=== PATIENT | male | born 1960 | race African-American/Black ===

== ENCOUNTER 2021-01-17 20:51 | Inpatient (IN) | payer MEDICARE, OTHER ==
[~2021-01-17] VITALS: Ht 172.7 cm; Wt 81.6 kg
[2021-01-17] MEDS ORDERED: BENZ2TAB7 PO (21:04)
[2021-01-17] MEDS ORDERED: BENZ1TAB7 PO (21:04)
--- NOTE | 2021-01-17 21:10 | NUR ---
PATIENT BIB [facility] FROM [facility] ON A 5150 HOLD FOR GD AND DTS TO BE MEDICALLY CLEARED. PT NOTED TO BE CALM AND COOPERATIVE AT THIS TIME. BED IN LOWEST POSITION FOR SAFETY PRECAUTIONS. ORIENTED PT TO ENVIRONMENT. PROVIDED PT WITH SAFE, QUIET AND CALM ENVIRONMENT.
[2021-01-17] MEDS ORDERED: GABA100C PO (21:25)
[2021-01-17] MEDS ORDERED: RISP2TAB5 PO (21:25)
[2021-01-17] MEDS ORDERED: QUET300T2 PO (21:25)
[2021-01-17] MEDS ORDERED: PHEN100C4 PO (21:25)
[2021-01-17] MEDS ORDERED: QUET200T PO (21:25)
[2021-01-17] MEDS ORDERED: CHLO25CA22 PO (21:25)
[2021-01-17] MEDS ORDERED: OLAN10TA3 PO (21:25)
[2021-01-17] MEDS ORDERED: QUET100T PO (21:25)
[2021-01-17] MEDS ORDERED: DIVA500T2 PO ×2 (21:25)
[2021-01-17] MEDS ORDERED: PHEN100P12 PO (21:25)
[2021-01-17] MEDS ORDERED: LEVE500T9 PO (21:25)
[2021-01-17] MEDS ORDERED: METF-440 PO (21:25)
--- NOTE | 2021-01-18 00:28 | NUR ---
Patient is resting comfortably in bed with eyes closed. Breathing even and unlabored.
--- NOTE | 2021-01-18 02:50 | NUR ---
1:1 SITTER AT BEDSIDE, PT NOTED TO BE ASLEEP, COMFORTABLE AND IN BED.
[2021-01-18] MEDS ORDERED: HALOPERIDOL LACTATE 5 MG/1 ML VIAL ONE (03:26)
[2021-01-18] MEDS ORDERED: HALOPERIDOL LACTATE 5 MG/1 ML VIAL IM ONE (03:30)
[2021-01-18] MEDS ORDERED: LORAZEPAM 2 MG/1 ML VIAL IM ONE (04:00)
[2021-01-18] MEDS ORDERED: diphenhydrAMINE 50 MG/1 ML VIAL IM ONE (04:00)
[2021-01-18] MEDS ORDERED: diphenhydrAMINE 50 MG/1 ML VIAL ONE (04:08)
[2021-01-18] MEDS ORDERED: LORAZEPAM 2 MG/1 ML VIAL ONE (04:08)
[2021-01-18 04:37] LABS: HEMATOCRIT 42.2 % (36.7-47.1); MEAN CORPUSCULAR HEMOGLOBIN 27.3 uug (23.8-33.4); MEAN CORPUSCULAR VOLUME 82.7 fL (73.0-96.2); PLATELET COUNT (AUTO) 264 K/uL (152-348)
[2021-01-18 04:47] LABS: CARBON DIOXIDE 26 mmol/L (21-32); CHLORIDE 102 mmol/L (98-107); GLUCOSE 89 mg/dL (74-106); POTASSIUM 3.6 mmol/L (3.5-5.1); UREA NITROGEN, BLOOD 18 mg/dL (7-18)
[2021-01-18 04:53] LABS: ALANINE AMINOTRANSFERASE 54 U/L (16-63); ALKALINE PHOSPHATASE 82 U/L (50-136); ASPARTATE AMINOTRANSFERASE 54 U/L (15-37); BILIRUBIN,DIRECT 0.1 mg/dL (0.0-0.2); BILIRUBIN,TOTAL 0.4 mg/dL (0.2-1.0); CREATINE KINASE, TOTAL 293 U/L (39-308); TOTAL PROTEIN, SERUM 8.2 g/dL (6.4-8.2)
[2021-01-18 04:54] LABS: ACETAMINOPHEN < 2.0 ug/mL (10-30)
[2021-01-18 05:08] LABS: ETHANOL < 3 MG/DL (0-0)
--- NOTE | 2021-01-18 05:19 | NUR ---
PT ASLEEP, RESTING COMFORTABLY. VITALS STABLE.
--- NOTE | 2021-01-18 06:44 | NUR ---
GAVE REPORT TO RAHEEL MELGOZA.
--- NOTE | 2021-01-18 07:13 | NUR ---
Pt. admitted to [facility] , under care of Dr. KUMARI DX: PSYCOSIS 6730 DTS, GD Belongs List completed
[2021-01-18 07:30] VITALS: BP 113/87
[2021-01-18 09:47] LABS: THYROID STIMULATING HORMONE 0.758 mIU/mL (0.358-3.740)
--- NOTE | 2021-01-18 10:05 | NUR ---
Gps/Video System Repairer- Patient arrived in the Unit 0710 am via gurney , in no sign of any distress, does not was to answer questions, his head covered with bedsheets, redirected to his room , will attempt to ask at a later time, patient does not want to be bothered
[2021-01-18] MEDS: THIAMINE HCL 100 MG TABLET PO SCH (12:44)
[2021-01-18] MEDS: LORAZEPAM 1 MG TABLET PO PRN ×3 (12:44→20:33)
[2021-01-18] MEDS: DIVALPROEX 500 MG TABLET.DR PO SCH ×2 (12:48→20:29)
--- NOTE | 2021-01-18 13:00 | NUR ---
Gps/Licensed Staff Mft- Patient remains in bed, in his room, flat guarded, not interactive, answers to simple yes no questions, Wants his room dark, refused to have lights on. Does not want to be bothered. Covered his head with blanket when try to interact and approached patient. Will continue to monitor behavior, denies S.I.
[2021-01-18 16:56] VITALS: BP 105/62
[2021-01-18] MEDS ORDERED: CHLORDIAZEPOXIDE HCL 25 MG CAPSULE PO SCH (18:00)
[2021-01-18] MEDS: GABAPENTIN 100 MG CAPSULE PO SCH (19:01)
[2021-01-18] MEDS: levETIRAcetam 500 MG TABLET PO SCH (19:02)
[2021-01-18 20:12] VITALS: BP 101/66
[2021-01-18] MEDS: OLANZAPINE 5 MG TABLET PO SCH (20:29)
[2021-01-18] MEDS: PHENYTOIN SODIUM EXTENDED 100 MG CAPSULE.SA PO SCH (20:33)
--- NOTE | 2021-01-19 04:03 | NUR ---
Received patient at the start of the shift in bed. This medical writer spoke to him and encouraged patient to get up out of bed for a snack. The patient was compliant with medications and did leave his room for a few minutes.. This medical writer was unable to engage in any meaningful conversation, but did make a contract for safety with the patient during this shift. The patient seemed somewhat disoriented at times. Continuing to monitor this patient for SI and safety. No behavior escalation noted and the patient had minimal interaction with staff and peers.
[2021-01-19 07:30] VITALS: BP 105/61
[2021-01-19] MEDS: GABAPENTIN 100 MG CAPSULE PO SCH ×3 (09:13→18:03)
[2021-01-19] MEDS: METFORMIN HCL 500 MG TABLET PO SCH ×2 (09:14→18:03)
[2021-01-19] MEDS: OLANZAPINE 5 MG TABLET PO SCH ×2 (09:14→20:31)
[2021-01-19] MEDS: THIAMINE HCL 100 MG TABLET PO SCH (09:14)
[2021-01-19] MEDS: DIVALPROEX 500 MG TABLET.DR PO SCH ×2 (09:15→20:31)
[2021-01-19] MEDS: SERTRALINE HCL 50 MG TABLET PO SCH (09:15)
[2021-01-19] MEDS: levETIRAcetam 500 MG TABLET PO SCH ×2 (09:15→18:04)
[2021-01-19] MEDS: MULTIVITAMINS,THERAPEUTIC TABLET PO SCH (09:16)
[2021-01-19] MEDS: PHENYTOIN SODIUM EXTENDED 100 MG CAPSULE.SA PO SCH ×2 (09:24→20:31)
--- NOTE | 2021-01-19 10:33 | NUR ---
Firearms Report Property Maintenance Technician completed and submitted a [employer] firearms report for 5150 danger to self and grave disability certifications. A copy of report has been placed in patient chart.
--- NOTE | 2021-01-19 11:15 | NUR ---
SW Initial Discharge Note Pt currently homeless. Pt reports he previously resided at [facility] located at [address] [place] [id number] ([phone]). RADHA contacted [facility] and spoke with EVAN, asset management coordinator, who informed pt was discharged on 01/11/21 but is welcome back upon discharge from hospital. RADHA will continue to work with patient and MD to ensure a safe and proper discharge.
--- NOTE | 2021-01-19 12:40 | NUR ---
Gps/Waiter/Waitress Counter- Remains in his room in bed, remains with lead patches from EKG, pt. refused to have it removed, when asked patient why, claimed it makes him feels better. Informed patches will eventually irritates his skin needed to be removed, finally patient let staff removed patches. Patient also asking for his credit card claimed it was in the pocket of his Hospital . gown, informed none was noted, he came in w/ no belongings .Remains with breakfast food at his table refusing staff to removed it, informed needed space for his lunch tray.
[2021-01-19 16:25] VITALS: BP 106/69
--- NOTE | 2021-01-19 18:19 | NUR ---
Gps/Superintendent Stations- Patient claimed he is missing his credit card, which he put inside his hospital gown, claimed was moved to many rooms, informed patient he came through ER to [facility] , he insisted he was moved to many rooms.
[2021-01-19] MEDS: LORAZEPAM 1 MG TABLET PO PRN (20:51)
[2021-01-20 07:30] VITALS: BP 91/57
[2021-01-20] MEDS: MULTIVITAMINS,THERAPEUTIC TABLET PO SCH (09:20)
[2021-01-20] MEDS: SERTRALINE HCL 50 MG TABLET PO SCH (09:21)
[2021-01-20] MEDS: METFORMIN HCL 500 MG TABLET PO SCH ×2 (09:21→17:46)
[2021-01-20] MEDS: DIVALPROEX 500 MG TABLET.DR PO SCH ×2 (09:21→20:23)
[2021-01-20] MEDS: OLANZAPINE 5 MG TABLET PO SCH ×2 (09:21→20:22)
[2021-01-20] MEDS: GABAPENTIN 100 MG CAPSULE PO SCH ×3 (09:22→17:47)
[2021-01-20] MEDS: levETIRAcetam 500 MG TABLET PO SCH ×2 (09:22→17:46)
[2021-01-20] MEDS: THIAMINE HCL 100 MG TABLET PO SCH (09:22)
[2021-01-20] MEDS: PHENYTOIN SODIUM EXTENDED 100 MG CAPSULE.SA PO SCH ×2 (09:23→20:23)
[2021-01-20 16:00] VITALS: BP 113/76
[2021-01-20 20:00] VITALS: BP 129/75
[2021-01-20] MEDS: LORAZEPAM 1 MG TABLET PO PRN (20:22)
[2021-01-21] MEDS: MULTIVITAMINS,THERAPEUTIC TABLET PO SCH (08:05)
[2021-01-21] MEDS: PHENYTOIN SODIUM EXTENDED 100 MG CAPSULE.SA PO SCH ×2 (08:05→21:01)
[2021-01-21] MEDS: THIAMINE HCL 100 MG TABLET PO SCH (08:05)
[2021-01-21] MEDS: OLANZAPINE 5 MG TABLET PO SCH ×2 (08:05→20:58)
[2021-01-21] MEDS: METFORMIN HCL 500 MG TABLET PO SCH ×2 (08:05→16:39)
[2021-01-21] MEDS: LORAZEPAM 1 MG TABLET PO PRN (08:05)
[2021-01-21] MEDS: GABAPENTIN 100 MG CAPSULE PO SCH ×3 (08:05→16:39)
[2021-01-21] MEDS: DIVALPROEX 500 MG TABLET.DR PO SCH ×2 (08:05→20:59)
[2021-01-21] MEDS: SERTRALINE HCL 50 MG TABLET PO SCH (08:05)
[2021-01-21] MEDS: levETIRAcetam 500 MG TABLET PO SCH ×2 (08:05→16:39)
[2021-01-21 08:26] VITALS: BP 98/59
[2021-01-21 16:02] VITALS: BP 116/74
--- NOTE | 2021-01-21 18:37 | NUR ---
PT NOTED TO HAVE DIARRHEAX3 EPISODES, BROWN WATERY STOOLS. CALLED DR. BETTS AND RECEIVED ORDER FOR IMODIUM. NOTED AND WILL CARRY OUT.
[2021-01-21] MEDS ORDERED: LOPERAMIDE HCL 2 MG CAPSULE PO PRN (18:45)
[2021-01-21 20:22] VITALS: BP 108/66
[2021-01-22 07:37] VITALS: BP 103/60
[2021-01-22] MEDS ORDERED: MAG HYDROX/AL HYDROX/SIMETH 30 ML LIQUID UDC PO PRN (08:00)
[2021-01-22] MEDS ORDERED: LORAZEPAM 1 MG TABLET PO PRN (08:00)
[2021-01-22] MEDS ORDERED: ZOLPIDEM 5 MG TABLET PO PRN (08:00)
[2021-01-22] MEDS ORDERED: MAGNESIUM HYDROXIDE 30 ML LIQUID UDC PO PRN (08:00)
[2021-01-22] MEDS: ACETAMINOPHEN 325 MG TABLET PO PRN (08:45)
[2021-01-22] MEDS: DIVALPROEX 500 MG TABLET.DR PO SCH ×2 (08:45→21:00)
[2021-01-22] MEDS: GABAPENTIN 100 MG CAPSULE PO SCH ×3 (08:45→17:27)
[2021-01-22] MEDS: METFORMIN HCL 500 MG TABLET PO SCH ×2 (08:45→17:27)
[2021-01-22] MEDS: MULTIVITAMINS,THERAPEUTIC TABLET PO SCH (08:45)
[2021-01-22] MEDS: SERTRALINE HCL 50 MG TABLET PO SCH (08:45)
[2021-01-22] MEDS: THIAMINE HCL 100 MG TABLET PO SCH (08:46)
[2021-01-22] MEDS: OLANZAPINE 5 MG TABLET PO SCH ×2 (08:46→21:00)
[2021-01-22] MEDS: levETIRAcetam 500 MG TABLET PO SCH ×2 (08:46→17:27)
[2021-01-22] MEDS: PHENYTOIN SODIUM EXTENDED 100 MG CAPSULE.SA PO SCH ×2 (09:04→21:00)
[2021-01-22 09:54] LABS: HEMATOCRIT 40.9 % (36.7-47.1); MEAN CORPUSCULAR VOLUME 82.7 fL (73.0-96.2); PLATELET COUNT (AUTO) 285 K/uL (152-348)
[2021-01-22 10:01] LABS: CREATININE 1.1 mg/dL (0.6-1.3); POTASSIUM 3.9 mmol/L (3.5-5.1)
[2021-01-22 10:07] LABS: BILIRUBIN,TOTAL 0.2 mg/dL (0.2-1.0); TOTAL PROTEIN, SERUM 7.5 g/dL (6.4-8.2)
--- NOTE | 2021-01-22 14:53 | NUR ---
I was called to court hearing over the phone, with the scientific writer, and Tim from patient's rights. Guide [employer] granted 14 days hold for this patient under Gravely disabled criteria.
--- NOTE | 2021-01-22 16:16 | NUR ---
GPS: Nursing Notes: Destructive Behavior to Self: Patient is awake and responding to his name, isolative and withdrawn in his room, no interactions with peers, believes that we have his credit card, redirected and reoriented during shift, refusing to shower, unkempt appearance, poor hygiene, refusing to eat breakfast, unable to formulate a viable plan for self care, continue to monitor for safety, continue with treatment plan.
[2021-01-22 16:19] VITALS: BP 144/82
[2021-01-22 20:11] VITALS: BP 101/65
[2021-01-22] MEDS: ATORVASTATIN 10 MG TABLET PO SCH (21:00)
--- NOTE | 2021-01-23 07:00 | NUR ---
Pt refused HS meds, stated "I am not taking those, I can't be taking them over and over because I already took them today." Offered 2 more times, teaching provided but still refused. Pt said he just wanted some snacks. Snacks provided per request.
[2021-01-23 08:05] VITALS: BP 109/68
[2021-01-23] MEDS: GABAPENTIN 100 MG CAPSULE PO SCH ×3 (08:58→16:53)
[2021-01-23] MEDS: THIAMINE HCL 100 MG TABLET PO SCH (08:59)
[2021-01-23] MEDS: MULTIVITAMINS,THERAPEUTIC TABLET PO SCH (08:59)
[2021-01-23] MEDS: OLANZAPINE 5 MG TABLET PO SCH ×2 (08:59→20:18)
[2021-01-23] MEDS: METFORMIN HCL 500 MG TABLET PO SCH ×2 (08:59→16:53)
[2021-01-23] MEDS: DIVALPROEX 500 MG TABLET.DR PO SCH ×2 (08:59→20:18)
[2021-01-23] MEDS: SERTRALINE HCL 50 MG TABLET PO SCH (08:59)
[2021-01-23] MEDS: levETIRAcetam 500 MG TABLET PO SCH ×2 (08:59→16:53)
[2021-01-23] MEDS: PHENYTOIN SODIUM EXTENDED 100 MG CAPSULE.SA PO SCH ×2 (08:59→20:22)
[2021-01-23 16:28] LABS: *BILIRUBIN,URIN NEGATIVE (NEGATIVE); *BLOOD, URINE NEGATIVE (NEGATIVE); *CLARITY,URINE CLEAR (CLEAR); *COLOR,URINE YELLOW (YELLOW); *KETONES,URINE 1+ (NEGATIVE); *UROBILINOGEN,URINE 0.2 E.U./dl (NORMAL); LEUKOCYTE ESTERASE ,URINE NEGATIVE (NEGATIVE); NITRITE, URINE NEGATIVE (NEGATIVE); PH,URINE 5.5 (5.0-8.0); UGLUCOSE NEGATIVE (NEGATIVE)
[2021-01-23 16:34] VITALS: BP 115/64
[2021-01-23 16:35] LABS: BACTERIA,URINE NONE SEEN /HPF (NONE SEEN); RBC,URINE 0-3 /HPF (0-3); SQUAMOUS EPITHELIAL CELL,UR NONE SEEN /HPF (NONE SEEN); WBC,URINE 0-3 /HPF (0-3)
--- NOTE | 2021-01-23 16:45 | NUR ---
RADHA faxed patient's referral packet to [facility] [address], [place] [address] ( ; ) attention to CJ for review.
[2021-01-23] MEDS: ATORVASTATIN 10 MG TABLET PO SCH (20:18)
[2021-01-23 21:49] VITALS: BP 117/67
[2021-01-23] MEDS: LORAZEPAM 1 MG TABLET PO PRN (22:17)
[2021-01-23] MEDS: ACETAMINOPHEN 325 MG TABLET PO PRN (22:17)
--- NOTE | 2021-01-24 06:40 | NUR ---
Slept throughout the night. Last night patient stated that he had a "hole in his heart but it filled back up." Pt was asked at that time if he had chest pain or SOB and pt denied. Vital signs taken and WNL. BP 104/65, O2 97%, P 78, T 98.9. Denies SI or HI at this time. Safety and comfort provided. Will endorse to day shift.
[2021-01-24 07:30] VITALS: BP 99/61
[2021-01-24] MEDS: DIVALPROEX 500 MG TABLET.DR PO SCH ×3 (09:01→20:30)
[2021-01-24] MEDS: THIAMINE HCL 100 MG TABLET PO SCH (09:01)
[2021-01-24] MEDS: GABAPENTIN 100 MG CAPSULE PO SCH ×3 (09:01→16:16)
[2021-01-24] MEDS: MULTIVITAMINS,THERAPEUTIC TABLET PO SCH (09:01)
[2021-01-24] MEDS: METFORMIN HCL 500 MG TABLET PO SCH ×2 (09:02→16:18)
[2021-01-24] MEDS: SERTRALINE HCL 50 MG TABLET PO SCH (09:02)
[2021-01-24] MEDS: levETIRAcetam 500 MG TABLET PO SCH ×2 (09:03→16:17)
[2021-01-24] MEDS: PHENYTOIN SODIUM EXTENDED 100 MG CAPSULE.SA PO SCH ×2 (09:07→20:31)
[2021-01-24] MEDS: OLANZAPINE 5 MG TABLET PO SCH ×2 (09:12→20:33)
--- NOTE | 2021-01-24 14:59 | NUR ---
Pt. is A/OX3 to person, place, environment. Pt. affect is depressive, isolative, low energy, withdrawn. Compliant with medications. Ambulates independently. Self care. Emotional support provided. Fall and safety precautions implemented.
[2021-01-24 16:00] VITALS: BP 113/70
[2021-01-24 20:09] VITALS: BP 108/73
[2021-01-24] MEDS: ATORVASTATIN 10 MG TABLET PO SCH (20:30)
[2021-01-25 07:30] VITALS: BP 106/69
[2021-01-25] MEDS: SERTRALINE HCL 50 MG TABLET PO SCH (09:02)
[2021-01-25] MEDS: GABAPENTIN 100 MG CAPSULE PO SCH ×3 (09:02→16:31)
[2021-01-25] MEDS: METFORMIN HCL 500 MG TABLET PO SCH ×2 (09:02→16:30)
[2021-01-25] MEDS: levETIRAcetam 500 MG TABLET PO SCH ×2 (09:03→16:31)
[2021-01-25] MEDS: PHENYTOIN SODIUM EXTENDED 100 MG CAPSULE.SA PO SCH ×2 (09:03→20:02)
[2021-01-25] MEDS: THIAMINE HCL 100 MG TABLET PO SCH (09:03)
[2021-01-25] MEDS: MULTIVITAMINS,THERAPEUTIC TABLET PO SCH (09:03)
[2021-01-25] MEDS: DIVALPROEX 500 MG TABLET.DR PO SCH ×3 (09:03→20:02)
[2021-01-25] MEDS: OLANZAPINE 5 MG TABLET PO SCH ×2 (09:11→20:03)
[2021-01-25 16:39] VITALS: BP 110/72
--- NOTE | 2021-01-25 18:03 | NUR ---
Patient is alert/oriented x3. Isolative. Compliant with medication. Safety precaution maintained. Frequent checks done. All due meds given. All needs attended. Will endorse to the next shift for continuity of care.
[2021-01-25] MEDS: LORAZEPAM 1 MG TABLET PO PRN (20:03)
[2021-01-25] MEDS: ATORVASTATIN 10 MG TABLET PO SCH (20:03)
[2021-01-25 20:08] VITALS: BP 108/66
--- NOTE | 2021-01-26 05:57 | NUR ---
Received patient at the start of the shift, in bed as usual and covers pulled over his head. This teletypewriter operator was unable to engage the patient in any type of meaningful conversation d/t tangental speech and delusional thought processes. Patients mood elevates when topic of showering comes up. This patient is malodorous and has refused to shower since his admission. The patient is isolative and only comes out of the room for food. Although medication compliant, the patient is easily irritated. Safety stratiges are in place. Continue to monitor for behavior escalation.
[2021-01-26 07:30] VITALS: BP 99/54
[2021-01-26] MEDS: METFORMIN HCL 500 MG TABLET PO SCH ×2 (08:36→17:19)
[2021-01-26] MEDS: GABAPENTIN 100 MG CAPSULE PO SCH ×3 (08:37→17:18)
[2021-01-26] MEDS: OLANZAPINE 5 MG TABLET PO SCH ×2 (08:37→20:26)
[2021-01-26] MEDS: MULTIVITAMINS,THERAPEUTIC TABLET PO SCH (08:38)
[2021-01-26] MEDS: SERTRALINE HCL 50 MG TABLET PO SCH (08:38)
[2021-01-26] MEDS: PHENYTOIN SODIUM EXTENDED 100 MG CAPSULE.SA PO SCH ×2 (08:39→20:27)
[2021-01-26] MEDS: THIAMINE HCL 100 MG TABLET PO SCH (08:39)
[2021-01-26] MEDS: DIVALPROEX 500 MG TABLET.DR PO SCH ×3 (08:39→20:26)
[2021-01-26] MEDS: levETIRAcetam 500 MG TABLET PO SCH ×2 (08:40→17:19)
[2021-01-26 13:00] VITALS: BP 112/56
--- NOTE | 2021-01-26 16:05 | NUR ---
SW Discharge Note Update SW spoke to CJ in admissions at [facility] located at [address] [place] [id number] and confirmed pt's discharge on 01/29/21 at 12pm via ambulance for admittance at [facility].
[2021-01-26] MEDS: ATORVASTATIN 10 MG TABLET PO SCH (20:26)
[2021-01-26] MEDS: LORAZEPAM 1 MG TABLET PO PRN (20:27)
[2021-01-26 20:35] VITALS: BP 110/67
[2021-01-27 07:30] VITALS: BP 121/74
[2021-01-27] MEDS: GABAPENTIN 100 MG CAPSULE PO SCH ×3 (08:55→16:13)
[2021-01-27] MEDS: MULTIVITAMINS,THERAPEUTIC TABLET PO SCH (08:55)
[2021-01-27] MEDS: OLANZAPINE 5 MG TABLET PO SCH ×2 (08:55→22:16)
[2021-01-27] MEDS: METFORMIN HCL 500 MG TABLET PO SCH ×2 (08:55→16:13)
[2021-01-27] MEDS: DIVALPROEX 500 MG TABLET.DR PO SCH ×3 (08:56→22:16)
[2021-01-27] MEDS: THIAMINE HCL 100 MG TABLET PO SCH (08:56)
[2021-01-27] MEDS: levETIRAcetam 500 MG TABLET PO SCH ×2 (08:56→16:14)
[2021-01-27] MEDS: SERTRALINE HCL 50 MG TABLET PO SCH (08:56)
[2021-01-27] MEDS: PHENYTOIN SODIUM EXTENDED 100 MG CAPSULE.SA PO SCH ×2 (08:56→22:18)
[2021-01-27 20:00] VITALS: BP 105/66
[2021-01-27] MEDS: ATORVASTATIN 10 MG TABLET PO SCH (22:16)
[2021-01-28 07:30] VITALS: BP 97/57
[2021-01-28] MEDS: GABAPENTIN 100 MG CAPSULE PO SCH ×3 (08:51→16:38)
[2021-01-28] MEDS: DIVALPROEX 500 MG TABLET.DR PO SCH ×3 (08:51→20:17)
[2021-01-28] MEDS: MULTIVITAMINS,THERAPEUTIC TABLET PO SCH (08:51)
[2021-01-28] MEDS: THIAMINE HCL 100 MG TABLET PO SCH (08:51)
[2021-01-28] MEDS: levETIRAcetam 500 MG TABLET PO SCH ×2 (08:51→16:38)
[2021-01-28] MEDS: OLANZAPINE 5 MG TABLET PO SCH ×2 (08:51→20:16)
[2021-01-28] MEDS: METFORMIN HCL 500 MG TABLET PO SCH ×2 (08:51→16:38)
[2021-01-28] MEDS: PHENYTOIN SODIUM EXTENDED 100 MG CAPSULE.SA PO SCH ×2 (08:51→20:17)
[2021-01-28] MEDS: SERTRALINE HCL 50 MG TABLET PO SCH (08:52)
[2021-01-28 15:07] VITALS: BP 104/59
[2021-01-28 20:00] VITALS: BP 116/71
[2021-01-28] MEDS: ATORVASTATIN 10 MG TABLET PO SCH (20:16)
[2021-01-29 07:30] VITALS: BP 106/68
--- NOTE | 2021-01-29 08:16 | NUR ---
RADHA Discharge Note [place] [address] [place] [address] ([phone]) via Ambulance transportation at 12PM. RADHA spoke with EVAN, admin coordinator at the facility, who states they are ready to accept the patient today. Pt is aware and agreeable with discharge plans. Pt is alert and oriented x3, is unable to plan for self-care at this time; however, is willing to accept care at SNF. Pt denies any suicidal or homicidal ideation. Patient signed the homeless waiver upon discharge and a copy was placed in the chart. Homeless resources were provided and include 211 information line for shelters and homeless resources. A copy of all resources given to patient was also placed in the chart. Pt was also provided list of resources for alcohol and drug treatment programs, including [facility] Substance Abuse self-Helpline ([phone]), [facility] ([phone]), and [facility] ([phone]). Pt will follow-up at the facility with Dr. Psychiatrist Aden and Dr. Evans Retort Firer. Pt presents with calm mood and congruent affect.
[2021-01-29] MEDS: METFORMIN HCL 500 MG TABLET PO SCH (08:43)
[2021-01-29] MEDS: GABAPENTIN 100 MG CAPSULE PO SCH ×2 (08:43→12:39)
[2021-01-29] MEDS: levETIRAcetam 500 MG TABLET PO SCH (08:43)
[2021-01-29] MEDS: OLANZAPINE 5 MG TABLET PO SCH (08:44)
[2021-01-29] MEDS: THIAMINE HCL 100 MG TABLET PO SCH (08:44)
[2021-01-29] MEDS: DIVALPROEX 500 MG TABLET.DR PO SCH (08:44)
[2021-01-29] MEDS: MULTIVITAMINS,THERAPEUTIC TABLET PO SCH (08:44)
[2021-01-29] MEDS: PHENYTOIN SODIUM EXTENDED 100 MG CAPSULE.SA PO SCH (08:44)
[2021-01-29] MEDS: SERTRALINE HCL 50 MG TABLET PO SCH (08:44)
--- NOTE | 2021-01-29 10:25 | NUR ---
Patient was provided with a brief substance abuse intervention and referred to the following substance abuse programs: [facility] Substance Abuse Self-helpline ([phone]); [facility] [address] [place] [address] ([phone]); [facility] ([phone]).
--- NOTE | 2021-01-29 12:45 | NUR ---
GPS: Nursing Notes: Discharge Notes: Patient is awake and responding to his name, compliant with his medications, cooperative with nursing care, following staff directions, denies SI/HI, denies AH/VH, denies pain or discomfort, denies SOB, discharge to [facility] [place] at [address] [place] [id number] . Patient will follow up with Dr. Aden (psychiatrist) and Dr. Evans (branch service representative) for aftercare at the facility. Patient took all his belongings with him, Patient was provided with a brief substance abuse intervention and referred to the following substance abuse programs: [facility] Substance Abuse Self-helpline ([phone]); [facility] [address] [place] [address] ([phone]); [facility] ([phone]).
== END 2021-01-29 12:45 | DRG 885 ==
LOC: ER 20:55 → GPS 01-18 06:51
PROVIDERS: ADMIT Psychiatry & Neurology Psychiatry; ATTEND Internal Medicine
DX: F25.1 Schizoaffective disorder, depressive type (principal); F10.139 Alcohol abuse with withdrawal, unspecified; R45.851 Suicidal ideations; Z59.00 Homelessness unspecified; F15.10 Other stimulant abuse, uncomplicated; J44.9 Chronic obstructive pulmonary disease, unspecified; E11.9 Type 2 diabetes mellitus without complications; E66.9 Obesity, unspecified; Z68.27 Body mass index [BMI] 27.0-27.9, adult; G40.909 Epilepsy, unspecified, not intractable, without status epilepticus; Z79.84 Long term (current) use of oral hypoglycemic drugs; Z79.899 Other long term (current) drug therapy; Z86.73 Personal history of transient ischemic attack (TIA), and cerebral infarction without residual deficits; Z87.891 Personal history of nicotine dependence; R50.9 Fever, unspecified; Z88.6 Allergy status to analgesic agent; Z88.5 Allergy status to narcotic agent; E78.5 Hyperlipidemia, unspecified
CPT/HCPCS: 36415; 71045; 80164; 83735; 84100; 84443; 85025; 87086; G0480; J1200; J1630; J2060